=== PATIENT | male | born 1950 | race Caucasian/White ===

== ENCOUNTER 2017-07-15 06:47 | Day surgery (SDC) | payer OTHER ==
[2017-07-15] MEDS: SOD CHLORIDE 0.9% 1,000 ML IV (06:00)
[2017-07-15] MEDS ORDERED: MIDAZOLAM 1 MG/ML 2 ML INJ (09:31)
[2017-07-15] MEDS: CEFAZOLIN 2 GM/50 ML (PMX) 50 ML IVPB (09:42)
[2017-07-15] MEDS: BUPIVACAINE 0.25% (MPF) 30 ML INJ (09:46)
[2017-07-15] MEDS: POLYMYXIN/BACITRACIN 1L IRRIG (09:46)
[2017-07-15] MEDS ORDERED: ONDANSETRON 4 MG INJ (10:32)
[2017-07-15] MEDS ORDERED: LIDOCAINE 100 MG SYRINGE (10:32)
[2017-07-15] MEDS ORDERED: PROPOFOL 20 ML (10:32)
[2017-07-15] MEDS ORDERED: CEFAZOLIN 1 GM INJ (10:32)
[2017-07-15] MEDS ORDERED: NEOSTIGMINE 3 MG/3 ML SYRINGE (10:32)
[2017-07-15] MEDS ORDERED: GLYCOPYRROLATE 0.4 MG INJ (10:32)
[2017-07-15] MEDS ORDERED: METOCLOPRAMIDE 10 MG INJ IV (11:00)
[2017-07-15] MEDS ORDERED: ATROPINE 1 MG/10 ML SYRINGE IV (11:00)
[2017-07-15] MEDS ORDERED: EPHEDrine SULFATE 50 MG/5 ML SYG IV (11:00)
[2017-07-15] MEDS ORDERED: HYDROmorphONE (0.2 MG/ML) 10ML SYG IV ×2 (11:00)
[2017-07-15] MEDS ORDERED: DIPHENHYDRAMINE 50 MG INJ IV (11:00)
[2017-07-15] MEDS ORDERED: FENTAnyl 50 MCG/ML VIAL IV (11:00)
[2017-07-15] MEDS: ONDANSETRON 4 MG INJ IV (11:17)
[2017-07-15] MEDS: MEPERIDINE 25 MG INJ IV (11:17)
[2017-07-15] MEDS: HYDROCODONE/APAP (5/325) TAB PO (11:41)
== END 2017-07-15 13:15 | disposition home or self-care (01) ==
LOC: SDS 06:47
DX: K40.30 Unilateral inguinal hernia, with obstruction, without gangrene, not specified as recurrent (principal); R73.03 Prediabetes
CPT/HCPCS: 49507